=== PATIENT | female | born 1935 | race Asian ===

== ENCOUNTER 2017-09-15 16:05 | Emergency (ER) | payer MEDICARE, OTHER ==
--- NOTE | 2017-09-15 16:47 | ER Document Report ---
ED Medical Screen (RME) - General Chief Complaint: Back Pain Stated Complaint: BACK PAIN Time Seen by Provider: 09/15/17 16:45 Mode of Arrival: Wheelchair Information source: Patient, Relative TRAVEL OUTSIDE OF THE [place] IN LAST 30 DAYS: No - HPI Patient complains to provider of: LBP Onset: This afternoon - pt is ESRD with HD q , Th, Sat -- had HD this am and developed L-sided atraumatic LBP this afternoon. - Related Data Allergies/Adverse Reactions: Penicillins Allergy (Unknown, Unverified 01/12/11 12:33) Physical Exam - Vital signs Vitals: Temp Pulse Resp BP Pulse Ox 98.9 F 81 16 178/60 H 92 09/15/17 16:18 09/15/17 16:18 09/15/17 16:18 09/15/17 16:18 09/15/17 16:18 Course - Vital Signs Vital signs: Temp Pulse Resp BP Pulse Ox 98.9 F 81 16 178/60 H 92 09/15/17 16:18 09/15/17 16:18 09/15/17 16:18 09/15/17 16:18 09/15/17 16:18
--- NOTE | 2017-09-15 18:27 | ER Document Report ---
ED Neck/Back Problem - General Chief Complaint: Back Pain Stated Complaint: BACK PAIN Time Seen by Provider: 09/15/17 16:45 Mode of Arrival: Wheelchair Notes: The patient is an 82-year-old female, past medical history ESRD, lumbar radiculopathy, presents with worsening right lower back pain over the past 2 days. She says that the pain is worse when she moves and feels like a spasming. She has had this in the past and usually uses salonpas patches with relief of her pain. She had a full course of dialysis earlier today. She denies saddle anesthesia, change in bowel or bladder, fevers, difficulty walking , abdominal pain, nausea, vomiting or rash. TRAVEL OUTSIDE OF THE [place] IN LAST 30 DAYS: No - Related Data Allergies/Adverse Reactions: Penicillins Allergy (Unknown, Verified 09/15/17 16:48) Past Medical History - General Information source: Patient, Relative - Social History Smoking Status: Never Smoker Chew tobacco use (# tins/day): No Frequency of alcohol use: None Drug Abuse: None Family History: Reviewed & Not Pertinent Patient has suicidal ideation: No Patient has homicidal ideation: No Renal/ Medical History: Denies: Hx Peritoneal Dialysis Review of Systems - Review of Systems Notes: REVIEW OF SYSTEMS: CONSTITUTIONAL: -fevers, -chills EENT: -eye pain, -difficulty swallowing, -nasal congestion CARDIOVASCULAR: -chest pain, -syncope. RESPIRATORY: -cough, -SOB GASTROINTESTINAL: -abdominal pain, -nausea, -vomiting, -diarrhea GENITOURINARY: -dysuria, -hematuria MUSCULOSKELETAL: +right lower back pain, -neck pain SKIN: -rash or skin lesions. HEMATOLOGIC: -easy bruising or bleeding. LYMPHATIC: -swollen, enlarged glands. NEUROLOGICAL: -altered mental status or loss of consciousness, -headache, - neurologic symptoms PSYCHIATRIC: -anxiety, -depression. ALL OTHER SYSTEMS REVIEWED AND NEGATIVE. Physical Exam - Vital signs Vitals: Temp Pulse Resp BP Pulse Ox 98.9 F 81 16 178/60 H 92 09/15/17 16:18 09/15/17 16:18 09/15/17 16:18 09/15/17 16:18 09/15/17 16:18 - Notes Notes: PHYSICAL EXAMINATION: GENERAL: Well-appearing, well-nourished and in no acute distress. HEAD: Atraumatic, normocephalic. EYES: Pupils equal round and reactive to light, extraocular movements intact, sclera anicteric, conjunctiva are normal. ENT: nares patent, oropharynx clear without exudates. Moist mucous membranes. NECK: Normal range of motion, supple without lymphadenopathy LUNGS: Breath sounds clear to auscultation bilaterally and equal. No wheezes rales or rhonchi. HEART: Regular rate and rhythm without murmurs ABDOMEN: Soft, nontender, normoactive bowel sounds. No guarding, no rebound. No masses appreciated. EXTREMITIES: Normal range of motion, no pitting or edema. No cyanosis. BACK: Right lower back pain and tenderness. No midline tenderness. NEUROLOGICAL: Cranial nerves grossly intact. Normal speech, normal gait. Normal sensory and motor exams. PSYCH: Normal mood, normal affect. SKIN: Warm, Dry, normal turgor, no rashes or lesions noted. Course - Re-evaluation Re-evalutation: Patient appears well. She has tenderness over her right lower paraspinal muscles and they feel like a spasm. After Lidoderm patch, Tylenol and Flexeril , she feels much better. No red flag signs for low back pain at this time. Ultrasound performed to assess for possible kidney stones or AAA. No stones seen, but aorta unable to be visualized. She has had this back pain multiple times in the past and AAA is unlikely at this time. Urinalysis does not show any evidence of pyelonephritis. Instructed her to follow with her primary care physician for further evaluation and treatment. - Vital Signs Vital signs: Temp Pulse Resp BP Pulse Ox 98.9 F 81 16 178/60 H 92 09/15/17 16:18 09/15/17 16:18 09/15/17 16:18 09/15/17 16:18 09/15/17 16:18 - Laboratory Result Diagrams: 09/15/17 17:40 09/15/17 17:40 Laboratory results interpreted by me: 09/15/17 09/15/17 09/15/17 17:40 17:40 20:35 WBC 10.7 H RBC 3.58 L Hgb 11.8 L Hct 34.1 L RDW 14.4 H Potassium 5.2 H Creatinine 3.92 H Est GFR ( Amer) 13 L Est GFR (Non-Af Amer) 11 L Urine Protein >=500 H Urine Ascorbic Acid 20 H - Diagnostic Test Radiology reviewed: Image reviewed, Reports reviewed Radiology results interpreted by me: Renal US: NAD Discharge - Discharge Clinical Impression: Back pain Qualifiers: Back pain location: low back pain Chronicity: chronic Back pain laterality: right Sciatica presence: without sciatica Qualified Code(s): M54.5 - Low back pain Condition: Stable Disposition: HOME, SELF-CARE Additional Instructions: LOW BACK PAIN: Three out of every four people will have an episode of disabling back pain during their lifetime. Most commonly the pain is due to straining of the muscles and ligaments in the low back. Usual treatment includes: (1) Rest on a firm surface. Avoid lying on your stomach. (2) Ice pack the painful area. After a few days, gentle heat may be used intermittently to relax the area, or ice packs can be continued. (3) Medication may be needed -- muscle relaxers and antiinflammatory medicines are commonly used. (4) As the back improves, exercises are prescribed to strengthen the back and abdominal muscles. Your doctor will advise you on the proper care for your back at each stage in your recovery. You may be better in a few days -- or healing may take several weeks. If new symptoms of a "herniated disc" (radiation of pain, numbness, or tingling down the back of the leg or weakness in the leg) occur, you should be re-examined. Further testing may be necessary. MUSCLE RELAXERS: Muscle relaxing medications are usually prescribed for acute muscle spasm or injury to the neck and back. They are often combined with antiinflammatory pain medication for increased relief. You may stop the muscle relaxer when the pain and stiffness have improved. Start the medication again if spasms recur. Muscle relaxers may cause drowsiness, especially with the first dose. Do not operate machinery or drive while under the effects of the medication. Most muscle relaxers last up to 24 hours. Do not combine the medication with alcohol. ICE PACKS: Apply ice packs frequently against the painful area. Many different schedules are recommended, such as "20 minutes on, 20 minutes off" or "one hour ice, two hours rest." If you need to work, you may need to go longer between ice treatments. You should plan to have the area ice packed AT LEAST one fourth of the time. The ice should be applied over the wrap, tape, or splint, or over a layer of cloth -- not directly against the skin. Some ice bags have a built-in cloth and can be put directly on the skin. WARM PACKS: After approximately two days, apply gentle heat (such as a heating pad or hot water bottle) for about 20 to 30 minutes about every two hours -- at least four times daily. Warmth and elevation will help you make a more rapid recovery , and will ease the pain considerably. Do not use HOT heat, and never apply heat for longer than 30 minutes. The continuous heat can invisibly damage skin and muscles -- even when no burn is seen on the surface. Damaged muscles can make you MORE sore. FOLLOW-UP CARE: If you have been referred to a physician for follow-up care, call the physician s office for an appointment as you were instructed or within the next two days. If you experience worsening or a significant change in your symptoms, notify the physician immediately or return to the Emergency Department at any time for re-evaluation. Prescriptions: Cyclobenzaprine HCl [Flexeril 10 mg Tablet] 10 mg PO TIDP PRN #15 tab PRN Reason: Lidocaine [Lidoderm 5% (700 mg) Transdermal Patch] 1 patch TP DAILY #10 adh..patch Forms: Elevated Blood Pressure Referrals: ESTEE BLANCA MD [Primary Care Provider] - Follow up as needed
[2017-09-15 18:30] LABS: ABSOLUTE BASOPHILS # (AUTO) 0.1 10^3/uL (0.0-0.2); ABSOLUTE EOSINOPHILS # (AUTO) 0.5 10^3/uL (0.0-0.6); ABSOLUTE LYMPHOCYTES (AUTO) 2.4 10^3/uL (0.5-4.7); ABSOLUTE MONOCYTES (AUTO) 0.8 10^3/uL (0.1-1.4); ABSOLUTE NEUT (AUTO) 6.9 10^3/uL (1.7-8.2); BASOPHILS % (AUTO) 0.6 % (0-2); EOSINOPHILS % (AUTO) 4.9 % (0-6); HEMATOCRIT 34.1 % (36.0-47.0); HEMOGLOBIN 11.8 g/dL (12.0-15.5); LYMPHOCYTES % (AUTO) 22.1 % (13-45); MEAN CORPUSCULAR HEMOGLOBIN 32.9 pg (27.0-33.4); MEAN CORPUSCULAR HGB CONC 34.6 g/dL (32.0-36.0); MEAN CORPUSCULAR VOLUME 95 fl (80-97); MONOCYTES % (AUTO) 7.6 % (3-13); PLATELET COUNT 179 10^3/uL (150-450); RED BLOOD COUNT 3.58 10^6/uL (3.72-5.28); RED CELL DISTRIBUTION WIDTH 14.4 % (11.5-14.0); SEGMENTED NEUTROPHILS % (AUTO) 64.8 % (42-78); TOTAL CELLS COUNTED % (AUTO) 100 %; WHITE BLOOD COUNT 10.7 10^3/uL (4.0-10.5)
--- NOTE | 2017-09-15 18:34 | RADIOLOGY REPORT (SQ) ---
EXAM DESCRIPTION: L SPINE WHOLE COMPLETED DATE/TIME: 09/15/2017 6:14 pm REASON FOR STUDY: LBP COMPARISON: 08/29/2011 NUMBER OF VIEWS: Five views including obliques. TECHNIQUE: AP, lateral, oblique, and sacral radiographic images acquired of the lumbar spine. LIMITATIONS: None. FINDINGS: MINERALIZATION: Osteopenia. ALIGNMENT: Stable. VERTEBRAE: Stable height. DISCS: Multilevel disc space narrowing with osteophytes. POSTERIOR ELEMENTS: Pedicles and facets are intact. No pars defect or posterior arch defects. Facet arthropathy is present. HARDWARE: None in the spine. PARASPINAL SOFT TISSUES: Normal. PELVIS: Intact as visualized. No fractures or worrisome bone lesions. SI joints intact. OTHER: No other significant finding. IMPRESSION: No acute findings identified. TECHNICAL DOCUMENTATION: JOB ID: [id number] [place]-72 2010 [employer]- All Rights Reserved Reading location - IP/workstation name: [email or web address]
[2017-09-15 18:49] LABS: ALANINE AMINOTRANSFERASE 31 U/L (9-52); ALBUMIN 4.6 g/dL (3.5-5.0); ALKALINE PHOSPHATASE 99 U/L (38-126); ANION GAP 16 (5-19); ASPARTATE AMINO TRANSFERASE 27 U/L (14-36); BILIRUBIN,DIRECT 0.3 mg/dL (0.0-0.4); BILIRUBIN,TOTAL 0.6 mg/dL (0.2-1.3); BLOOD UREA NITROGEN 18 mg/dL (7-20); CALCIUM 9.5 mg/dL (8.4-10.2); CARBON DIOXIDE 26 mmol/L (22-30); CHLORIDE 98 mmol/L (98-107); GLUCOSE 93 mg/dL (75-110); POTASSIUM 5.2 mmol/L (3.6-5.0); SODIUM 140.1 mmol/L (137-145); TOTAL PROTEIN 7.5 g/dL (6.3-8.2)
--- NOTE | 2017-09-15 20:39 | RADIOLOGY REPORT (SQ) ---
EXAM DESCRIPTION: U/S RETROPERITON (RENAL/AORTA) COMPLETED DATE/TIME: 09/15/2017 8:12 pm REASON FOR STUDY: hypertension, atraumatic left back pain COMPARISON: None. TECHNIQUE: Dynamic and static grayscale images acquired of the kidneys and bladder and recorded on P ACS. Additional selected color Doppler and spectral images recorded. LIMITATIONS: None. FINDINGS: RIGHT KIDNEY: 7.7 cm length. Mild increased echogenicity. No solid or suspicious masses i dentified. No hydronephrosis. No calcifications. LEFT KIDNEY: 8.4 cm length. Mild increased echogenicity. No solid or suspicious masses identified. No hydronephrosis. No calcifications. BLADDER: Not imaged OTHER FINDINGS: No other significant finding. IMPRESSION: No evidence for renal urinary obstruction. TECHNICAL DOCUMENTATION: JOB ID: [id number] [place]-[address] [employer] [address]- All Rights Reserved Reading location - IP/workstation name: [email or web address]
[2017-09-15] MEDS ORDERED: LIDOCAINE 5% (700 MG) TRANSDERMAL ADH..PATCH TP ONE (20:54)
[2017-09-15] MEDS ORDERED: ACETAMINOPHEN 325 MG TABLET PO ONE (20:54)
[2017-09-15] MEDS ORDERED: CYCLOBENZAPRINE HCL 10 MG TABLET PO ONE (20:54)
[2017-09-15 21:07] LABS: BILIRUBIN,URINE NEGATIVE (NEGATIVE); COLOR,URINE YELLOW; GLUCOSE, URINE NEGATIVE (NEGATIVE); KETONES,URINE NEGATIVE (NEGATIVE); LEUKOCYTE ESTERASE,URINE NEGATIVE (NEGATIVE); NITRITE,URINE NEGATIVE (NEGATIVE); PROTEIN,URINE >=500 mg/dL (NEGATIVE); URINE SPECIFIC GRAVITY 1.012; UROBILINOGEN,URINE NEGATIVE mg/dL (<2.0)
[2017-09-15 21:09] LABS: APPEARANCE,URINE CLEAR
[2017-09-15 22:02] VITALS: BP 200/54
== END 2017-09-15 21:55 | disposition home or self-care (01) ==
LOC: ER 16:05
DX: M54.5 Low back pain (principal); G89.29 Other chronic pain; N18.6 End stage renal disease; Z99.2 Dependence on renal dialysis; Z88.0 Allergy status to penicillin
CPT/HCPCS: 99284; 36415; 85025; 80053; 81001; 72110; 76770; A9270 ×2

== ENCOUNTER 2017-09-20 18:22 | Emergency (ER) | payer MEDICARE, OTHER ==
[2017-09-20] MEDS ORDERED: HYDROCODONE/ACETAMINOPHEN 5-325 MG TABLET PO ONE (18:53)
--- NOTE | 2017-09-20 18:54 | ER Document Report ---
ED Medical Screen (RME) - General Chief Complaint: Numbness Stated Complaint: BACK PAIN Time Seen by Provider: 09/20/17 18:42 Mode of Arrival: Wheelchair Information source: Patient, Relative Notes: 82-year-old dialysis patient with history of 3 previous back surgeries presents with complaints of back pain which is worsened for the past week. Patient notes numbness in the leg. Denies any loss of bowel or bladder function denies any other cauda equina concerns I have greeted and performed a rapid initial assessment of this patient. A comprehensive ED assessment and evaluation of the patient, analysis of test results and completion of the medical decision making process will be conducted by additional ED providers. PHYSICAL EXAMINATION: GENERAL: Well-appearing, well-nourished and in no acute distress. HEAD: Atraumatic, normocephalic. EYES: Pupils equal round extraocular movements intact, conjunctiva are normal. ENT: Nares patent NECK: Normal range of motion LUNGS: No respiratory distress Musculoskeletal: Normal range of motion, chronic lumbar deformity, surgical incisions NEUROLOGICAL: Normal speech, normal gait. PSYCH: Normal mood, normal affect. SKIN: Warm, Dry, normal turgor, no rashes or lesions noted. TRAVEL OUTSIDE OF THE [place] IN LAST 30 DAYS: No - Related Data Allergies/Adverse Reactions: Penicillins Allergy (Unknown, Verified 09/20/17 18:37) Past Medical History - Social History Frequency of alcohol use: None Drug Abuse: None - Past Medical History Cardiac Medical History: Reports: Hx Hypertension Endocrine Medical History: Reports: Hx Diabetes Mellitus Type 1 Renal/ Medical History: Comment Only: Hx Peritoneal Dialysis - T//SUN Past Surgical History: Reports: Hx Orthopedic Surgery - back x3, right knee Physical Exam - Vital signs Vitals: Temp Pulse Resp BP Pulse Ox 97.9 F 89 16 160/65 H 94 09/20/17 18:27 09/20/17 18:27 09/20/17 18:27 09/20/17 18:27 09/20/17 18:27 Course - Vital Signs Vital signs: Temp Pulse Resp BP Pulse Ox 97.9 F 89 16 160/65 H 94 09/20/17 18:27 09/20/17 18:27 09/20/17 18:27 09/20/17 18:27 09/20/17 18:27
--- NOTE | 2017-09-20 19:46 | ER Document Report ---
ED General - General Chief Complaint: Numbness Stated Complaint: BACK PAIN Time Seen by Provider: 09/20/17 18:42 Mode of Arrival: Wheelchair TRAVEL OUTSIDE OF THE [place] IN LAST 30 DAYS: No - HPI Notes: Patient is an 82-year-old female with history of end-stage renal disease (on dialysis every , , sun), hypertension, diabetes, chronic back pain who presents to the ED complaining of continued back pain over the last week. Patient states that she was evaluated this past Sunday and was diagnosed with a muscle spasm. Patient states that her pain has remained constant since then, and has not been worsening since then. Patient states that she is still eating and drinking without any difficulties. Patient has chronic issues constipation , but bowel movements have otherwise been normal. Patient states that she has had 3 previous surgeries to her lower back. Patient states that her pain is to the left lower side and not midline. Patient states that on occasion she will feel some numbness/tingling radiate down into her legs bilaterally. She denies any IV drug use or recent surgery/injection to her lower back. She denies any recent illness. Denies any history of spinal abscess. Denies any headache, fever, neck pain, URI, sore throat, chest pain, palpitations, syncope, cough, shortness of breath, wheeze, dyspnea, abdominal pain, nausea/vomiting/diarrhea, loss of control of bowel or bladder, saddle anesthesia, muscle paralysis/ weakness, or rash. - Related Data Allergies/Adverse Reactions: Penicillins Allergy (Unknown, Verified 09/20/17 18:37) Past Medical History - General Information source: Patient, Relative - Social History Smoking Status: Never Smoker Frequency of alcohol use: None Drug Abuse: None Family History: Reviewed & Not Pertinent Patient has suicidal ideation: No Patient has homicidal ideation: No - Past Medical History Cardiac Medical History: Reports: Hx Hypertension Endocrine Medical History: Reports: Hx Diabetes Mellitus Type 1 Renal/ Medical History: Comment Only: Hx Peritoneal Dialysis - //SUN Past Surgical History: Reports: Hx Orthopedic Surgery - back x3, right knee Review of Systems - Review of Systems -: Yes All other systems reviewed and negative Physical Exam - Vital signs Vitals: Temp Pulse Resp BP Pulse Ox 97.9 F 89 16 160/65 H 94 09/20/17 18:27 09/20/17 18:27 09/20/17 18:27 09/20/17 18:27 09/20/17 18:27 - Notes Notes: PHYSICAL EXAMINATION: GENERAL: Well-appearing, well-nourished and in no acute distress. A&Ox4. Answers questions appropriately. LUNGS: Breath sounds clear to auscultation bilaterally and equal. No wheezes rales or rhonchi. HEART: Regular rate and rhythm without murmurs, rubs, gallops. ABDOMEN: Soft, nontender, nondistended abdomen. No guarding, no rebound. No masses appreciated. Normal bowel sounds present. No CVA tenderness bilaterally. No pulsatile mass Musculoskeletal: LE's b/l: FROM to passive/active. Strength 5+/5. No deficits noted. No bony tenderness of extremities. Back: FROM to passive/active. Strength 5+/5. No vertebral point tenderness, stepoffs. + deformity to the prev surgical site low back (chronic per spouse). No other bony tenderness, erythema, swelling, or ecchymosis. SLR negative b/l. + mild tenderness to the left L-paraspinal mm. Mild spasming. No SI jt tenderness. No foot drop Extremities: No cyanosis, clubbing, or edema b/l. Peripheral pulses 2+. Capillary refill less than 2 seconds. NEUROLOGICAL: Normal speech, ataxic gait. Normal sensory, motor exams. Reflexes 2+ b/l. PSYCH: Normal mood, normal affect. SKIN: Warm, Dry, normal turgor, no rashes or lesions noted. Course - Re-evaluation Re-evalutation: 09/20/17 22:16 Patient is an afebrile, well-hydrated, 82-year-old female who presents the ED with new onset L1 compression vertebral body fracture. Vitals are stable. PE is otherwise unremarkable for any focal neurological deficits. CBC, CMP were unremarkable for any acute pathology. See MRI results. Low suspicion for any meningitis, expanding/ruptured AAA, cauda equina syndrome, epidural mass lesion/ abscess, herniated disc causing severe spinal stenosis, or other systemic infection at this time. Patient is aware that her condition can change from initial presentation and that she needs monitor symptoms closely for any acute changes. I will send the patient home with a [employer] dispense pack. Recommend conservative measures for symptoms. Call orthopedics tomorrow to schedule an appointment for further evaluation and management. Recheck with your PCM in 1 week. Return to the ED with any worsening/concerning symptoms otherwise as reviewed discharge. Patient is in agreement. - Vital Signs Vital signs: Temp Pulse Resp BP Pulse Ox 97.9 F 89 16 160/65 H 94 09/20/17 18:27 09/20/17 18:27 09/20/17 18:27 09/20/17 18:27 09/20/17 18:27 - Laboratory Result Diagrams: 09/20/17 19:47 09/20/17 19:20 Laboratory results interpreted by me: 09/20/17 09/20/17 19:20 19:47 RBC 3.46 L Hgb 11.2 L Hct 32.8 L RDW 14.3 H Eosinophils % 6.3 H Potassium 5.2 H BUN 22 H Creatinine 4.20 H Est GFR ( Amer) 12 L Est GFR (Non-Af Amer) 10 L Glucose 138 H Discharge - Discharge Clinical Impression: Vertebral compression fracture Qualifiers: Encounter type: initial encounter Qualified Code(s): M48.50XA - Collapsed vertebra, not elsewhere classified, site unspecified, initial encounter for fracture Condition: Stable Disposition: HOME, SELF-CARE Instructions: Compression Fracture of the Spine ([facility]) Additional Instructions: Rest, Ice Tylenol/ibuprofen as needed Light stretches daily Strength exercises as able Moist heat and massage may help F/u with your PCP in 1 week for a recheck Call tomorrow and schedule an appointment with orthopedics for further evaluation and management. Return to the ED with any worsening symptoms and/or development of fever, headache, chest pain, palpitations, syncope, shortness of breath, trouble breathing, abdominal pain, n/v/d, blood in stool/urine, loss of control of bowel /bladder, urinary retention, muscle weakness/paralysis, saddle anesthesia, numbness/tingling, or other worsening symptoms that are concerning to you. Forms: Elevated Blood Pressure Referrals: ESTEE BLANCA MD [Primary Care Provider] - Follow up in 1 week [facility] [Provider Group] - Follow up in 3-5 days
[2017-09-20 20:02] LABS: ALANINE AMINOTRANSFERASE 23 U/L (9-52); ALBUMIN 4.3 g/dL (3.5-5.0); ALKALINE PHOSPHATASE 110 U/L (38-126); ANION GAP 14 (5-19); ASPARTATE AMINO TRANSFERASE 31 U/L (14-36); BILIRUBIN,DIRECT 0.4 mg/dL (0.0-0.4); BILIRUBIN,TOTAL 0.4 mg/dL (0.2-1.3); BLOOD UREA NITROGEN 22 mg/dL (7-20); CALCIUM 8.9 mg/dL (8.4-10.2); CARBON DIOXIDE 26 mmol/L (22-30); CHLORIDE 98 mmol/L (98-107); GLUCOSE 138 mg/dL (75-110); POTASSIUM 5.2 mmol/L (3.6-5.0); SODIUM 138.3 mmol/L (137-145); TOTAL PROTEIN 7.5 g/dL (6.3-8.2)
[2017-09-20 20:11] LABS: ABSOLUTE BASOPHILS # (AUTO) 0.1 10^3/uL (0.0-0.2); ABSOLUTE EOSINOPHILS # (AUTO) 0.5 10^3/uL (0.0-0.6); ABSOLUTE LYMPHOCYTES (AUTO) 2.4 10^3/uL (0.5-4.7); ABSOLUTE MONOCYTES (AUTO) 0.8 10^3/uL (0.1-1.4); ABSOLUTE NEUT (AUTO) 4.7 10^3/uL (1.7-8.2); BASOPHILS % (AUTO) 1.2 % (0-2); EOSINOPHILS % (AUTO) 6.3 % (0-6); HEMATOCRIT 32.8 % (36.0-47.0); HEMOGLOBIN 11.2 g/dL (12.0-15.5); MEAN CORPUSCULAR HEMOGLOBIN 32.3 pg (27.0-33.4); MEAN CORPUSCULAR HGB CONC 34.1 g/dL (32.0-36.0); MEAN CORPUSCULAR VOLUME 95 fl (80-97); MONOCYTES % (AUTO) 8.9 % (3-13); PLATELET COUNT 207 10^3/uL (150-450); RED BLOOD COUNT 3.46 10^6/uL (3.72-5.28); RED CELL DISTRIBUTION WIDTH 14.3 % (11.5-14.0); SEGMENTED NEUTROPHILS % (AUTO) 55.6 % (42-78); TOTAL CELLS COUNTED % (AUTO) 100 %; WHITE BLOOD COUNT 8.5 10^3/uL (4.0-10.5)
--- NOTE | 2017-09-20 22:03 | RADIOLOGY REPORT (SQ) ---
EXAM DESCRIPTION: MRI LUMBAR SPINE WITHOUT COMPLETED DATE/TIME: 09/20/2017 9:17 pm REASON FOR STUDY: 3 previous lumbar surgeries, back pain COMPARISON: CT August 2011 TECHNIQUE: Sagittal and Axial imaging includes T1, T2, STIR and gradient echo sequences. Coronal T2/ HASTE imaging. LIMITATIONS: None. FINDINGS: There is a new 25% compression of the L1 vertebral body with approximately 30% anterior co lumn height loss. No retropulsed fragments into the spinal canal. Otherwise similar degenerative sp ondylolisthesis and disc disease. No epidural fluid collection. OTHER: No other significant findings. IMPRESSION: New compression fracture of the L1 vertebral body with approximately 30% anterior column height loss. No retropulsed fragments into the spinal canal. Otherwise similar degenerative spondy lolisthesis and disc disease. No epidural fluid collection. TECHNICAL DOCUMENTATION: JOB ID: [id number] [place]-72 2010 [employer] All Rights Reserved Reading location - IP/workstation name: [email or web address]
[2017-09-20] MEDS ORDERED: HYDROCODONE/ACETAMINOPHEN 5-325 MG (6 TAB/ER DISP) PO PRN (22:19)
[2017-09-20 22:49] VITALS: BP 145/46
== END 2017-09-20 22:49 | disposition home or self-care (01) ==
LOC: ER 18:22
DX: M48.56XA Collapsed vertebra, not elsewhere classified, lumbar region, initial encounter for fracture (principal); E10.22 Type 1 diabetes mellitus with diabetic chronic kidney disease; I12.0 Hypertensive chronic kidney disease with stage 5 chronic kidney disease or end stage renal disease; N18.6 End stage renal disease; Z99.2 Dependence on renal dialysis; R20.0 Anesthesia of skin; R20.2 Paresthesia of skin; Z98.890 Other specified postprocedural states; Z88.0 Allergy status to penicillin
CPT/HCPCS: 99284; 36415; 85025; 80053; 72148; A9270 ×2

== ENCOUNTER 2018-10-01 03:57 | Emergency (ER) | payer MEDICARE, OTHER ==
[2018-10-01] MEDS ORDERED: PROPOFOL 1,000 MG/100 ML INFUS..BTL IV PRN (04:00)
[2018-10-01] MEDS ORDERED: MIDAZOLAM 2 MG/2 ML INJ ONE ×2 (04:01→05:04)
[2018-10-01] MEDS ORDERED: MIDAZOLAM 2 MG/2 ML INJ IV ONE ×2 (04:02→05:34)
[2018-10-01] MEDS ORDERED: CALCIUM GLUCONATE 1000 MG/10 ML INJ IV ONE (04:05)
[2018-10-01] MEDS ORDERED: IPRATROPIUM/ALBUTEROL 0.5-2.5 MG/3 ML AMPUL NEB ONE (04:21)
--- NOTE | 2018-10-01 04:46 | RADIOLOGY REPORT (SQ) ---
EXAM DESCRIPTION: XR CHEST 1 VIEW COMPLETED DATE/TME: 10/01/2018 04:05 CLINICAL HISTORY: 83 years Female, respiratory failure COMPARISON: None. NUMBER OF VIEWS/TECHNIQUE: 1/AP FINDINGS: Tip of an enteric tracheal tube at the right main bronchus; recommend 6 cm retraction of the endotracheal tube. Moderate mixed interstitial and airspace opacities with central and right upper predominance, mildly enlarged cardiac silhouette, and intact bony thorax. Atherosclerotic vascular disease. Likely adequate appearing enteric tube partially obscured. IMPRESSION: 1. Tip of an enteric tracheal tube at the right main bronchus; recommend 6 cm retraction of the endotracheal tube. 2. Moderate mixed interstitial and airpace opacities. Differential diagnosis includes CHF/pulmonary edema, multifocal pneumonia, and chronic interstitial lung disease.
[2018-10-01] MEDS ORDERED: MIDAZOLAM HCL 50 MG/100 ML RTUINJ IV PRN (04:50)
[2018-10-01] MEDS ORDERED: MIDAZOLAM HCL 50 MG/100 ML RTUINJ ONE (04:50)
--- NOTE | 2018-10-01 05:55 | ER Document Report ---
ED General - General Chief Complaint: Respiratory Arrest Stated Complaint: UNRESPONSIVE Time Seen by Provider: 10/01/18 04:04 Primary Care Provider: ESTEE BLANCA MD [Primary Care Provider] - Follow up as needed TRAVEL OUTSIDE OF THE [place] IN LAST 30 DAYS: No - HPI Notes: Patient brought in for evaluation of respiratory failure. History from EMS is as follows: Patient's heard her yell out for help. She seemed extremely short of breath. EMS was called. Upon arrival the patient was extremely hypoxic with an SPO2 in the 30s. Patient was intubated. She had large emesis. Despite intubation she remained hypoxic. In the field she did have a cardiac arrest. She was given 2 epinephrine IV as well as calcium. She did have return of circulation at that time. She is brought in for further evaluation. The patient is an end-stage renal patient. She is due for dialysis this morning. According to family she has been attending dialysis regularly. No recent medication changes. - Related Data Allergies/Adverse Reactions: No Known Allergies Allergy (Verified 10/01/18 04:34) Past Medical History - General Information source: Relative, Emergency Med Personnel - Social History Smoking Status: Unknown if Ever Smoked Family History: Reviewed & Not Pertinent - Past Medical History Cardiac Medical History: Reports: Hx Hypertension Renal/ Medical History: Reports: Hx End Stage Renal Disease GI Medical History: Reports: Hx Gastroesophageal Reflux Disease Review of Systems - Review of Systems -: Yes ROS unobtainable due to patient's medical condition Physical Exam - Vital signs Vitals: Resp Pulse Ox 28 H 73 L 10/01/18 04:00 10/01/18 04:00 - Notes Notes: Patient brought in the room with ET tube in place. Head is normocephalic and appears atraumatic. Pupils are equal and round, 2 mm, largely nonreactive. Heart is regular rate and rhythm. Lungs show markedly diminished breath sounds on the right with expiratory wheezes throughout both lung vuong. Abdomen soft, nontender, no active bowel sounds. Left upper extremity reveals AV fistula with palpable thrill. Extremities without cyanosis or clubbing. A moderate amount of facial and extremity edema is noted, nonpitting. Patient is sedated. Makes no purposeful movements initially, but does occasionally cough. When disturbed moves all 4 extremities. Course - Re-evaluation Re-evalutation: 10/01/18 07:10 Patient presented to the emergency department for evaluation. She was already intubated upon arrival. Unfortunately she remained significantly hypoxic. She had emesis at the mouth. Tube was suctioned. The patient was placed on a ventilator with PEEP applied. This did significantly improve her oxygenation. Patient's ET tube was found to be at the level of the gracy and pointing towards the right mainstem bronchus. The ET tube was withdrawn approximately 5 cm. During the course of the patient stay her blood pressure dropped significantly. She was initially hypertensive and started on propofol for sedation. Her blood pressure dropped to 110. Propofol was discontinued and the patient was started on Versed. Despite this, the patient's blood pressure continued to drop. Decision was made that a pressor would be required. She had only a 20-gauge peripheral access, and it was positional. Decision was made to place a central line. I did discuss this with the patient's family, including the risks and alternatives. Verbal consent was obtained. Please see separate procedure note. The patient tolerated this well. Postprocedural chest x-ray revealed appropriate placement and no signs of pneumothorax. Patient was started on Levophed through the central line. Laboratory investigations have revealed a white blood cell count of 18.9 thousand. Remainder of her labs are still pending. At this point we do not have any dialysis beds in house. The patient will likely need regular dialysis today, chemistry still pending. Patient has been seen at [facility] in the past. Will attempt them for possible transfer. 10/01/18 07:20 10/01/18 07:21 Still awaiting labs. Patient stable on Levophed, oxygenating well with current vent settings. 10/01/18 08:08 I spoke with the patient transfer water softener service supervisor at [facility]. I was informed there were no dialysis beds. I then spoke to transfer center at [facility]. I was informed there were no dialysis beds. I then spoke to Dr. Hanson, MICU physician at [facility]. Patient was presented. She accepted her for transfer, bed assignment is pending. Patient is stable at this time. - Vital Signs Vital signs: Temp Pulse Resp BP Pulse Ox 98.7 F 18 138/62 H 93 10/01/18 09:06 10/01/18 09:06 10/01/18 09:06 10/01/18 09:06 - Laboratory Result Diagrams: 10/01/18 06:23 10/01/18 06:23 Laboratory results interpreted by me: 10/01/18 10/01/18 10/01/18 06:23 06:23 06:23 WBC 18.9 H RBC 2.53 L Hgb 8.2 L Hct 24.3 L RDW 14.6 H Seg Neutrophils % 86.6 H Lymphocytes % 7.1 L Absolute Neutrophils 16.4 H Carbonic Acid ABG pH ABG pCO2 ABG pO2 ABG HCO3 ABG Total CO2 ABG O2 Saturation Sodium 134.2 L Potassium 5.2 H Carbon Dioxide 20 L BUN 40 H Creatinine 7.36 H Est GFR ( Amer) 6 L Est GFR (Non-Af Amer) 5 L Glucose 269 H Lactic Acid AST 68 H NT-Pro-B Natriuret Pep 2440 H Total Protein 5.6 L Albumin 3.4 L 10/01/18 10/01/18 10/01/18 06:23 08:06 09:03 WBC RBC Hgb Hct RDW Seg Neutrophils % Lymphocytes % Absolute Neutrophils Carbonic Acid 0.80 L 0.87 L ABG pH 7.49 H ABG pCO2 26.7 L 28.9 L ABG pO2 48.7 L 54.7 L ABG HCO3 19.7 L 19.5 L ABG Total CO2 20.5 L 20.3 L ABG O2 Saturation 88.1 L 90.2 L Sodium Potassium Carbon Dioxide BUN Creatinine Est GFR ( Amer) Est GFR (Non-Af Amer) Glucose Lactic Acid 4.2 H AST NT-Pro-B Natriuret Pep Total Protein Albumin - Diagnostic Test Radiology reviewed: Image reviewed, Reports reviewed - EKG Interpretation by Me Additional EKG results interpreted by me: 10/01/18 07:20 Sinus tachycardia with a rate of 108 bpm. Normal axis, intervals. ST depression and T wave inversion laterally, concerning for ischemia versus LVH w ith strain. No old studies available for comparison. Procedures - Central Line Right Internal jugular Time completed: 06:03 Consent obtained: Yes Central line pre-insertion: Sterile PPE donned, Chloraprep applied, Sterile drapes applied Central line lumen type: Triple Anesthetic type: 1% Lidocaine mL's of anesthesia: 4 Ultrasound guided: Yes Line secured with sutures: Yes Central line post-insertion: Blood return from lumens, Sutured, Sterile dressing applied Number of attempts: 2 Complications: No Critical Care Note - Critical Care Note Total time excluding time spent on procedures (mins): 45 Discharge - Discharge Clinical Impression: Acute respiratory failure with hypoxia, Septic shock Pneumonia Qualifiers: Pneumonia type: aspiration pneumonia Condition: Critical Disposition: [facility] Admitting Provider: Dr. Hanson Unit Admitted: ICU Referrals: ESTEE BLANCA MD [Primary Care Provider] - Follow up as needed
[2018-10-01] MEDS ORDERED: NOREPINEPHRINE BITARTRATE INJ/PF 4 MG/4 ML SDV IV ONE (06:02)
[2018-10-01 06:43] LABS: ABSOLUTE BASOPHILS # (AUTO) 0.1 10^3/uL (0.0-0.2); ABSOLUTE EOSINOPHILS # (AUTO) 0.2 10^3/uL (0.0-0.6); ABSOLUTE LYMPHOCYTES (AUTO) 1.3 10^3/uL (0.5-4.7); ABSOLUTE NEUT (AUTO) 16.4 10^3/uL (1.7-8.2); BASOPHILS % (AUTO) 0.4 % (0-2); EOSINOPHILS % (AUTO) 0.9 % (0-6); HEMATOCRIT 24.3 % (36.0-47.0); HEMOGLOBIN 8.2 g/dL (12.0-15.5); LYMPHOCYTES % (AUTO) 7.1 % (13-45); MEAN CORPUSCULAR HEMOGLOBIN 32.4 pg (27.0-33.4); MEAN CORPUSCULAR HGB CONC 33.7 g/dL (32.0-36.0); MEAN CORPUSCULAR VOLUME 96 fl (80-97); PLATELET COUNT 157 10^3/uL (150-450); RED BLOOD COUNT 2.53 10^6/uL (3.72-5.28); RED CELL DISTRIBUTION WIDTH 14.6 % (11.5-14.0); SEGMENTED NEUTROPHILS % (AUTO) 86.6 % (42-78); TOTAL CELLS COUNTED % (AUTO) 100 %; WHITE BLOOD COUNT 18.9 10^3/uL (4.0-10.5)
[2018-10-01] MEDS ORDERED: DEXTROSE 5%-WATER 250 ML with NOREPINEPHRINE BITARTRATE 4 MG IV PRN ×2 (06:50)
--- NOTE | 2018-10-01 06:59 | RADIOLOGY REPORT (SQ) ---
EXAM DESCRIPTION: XR CHEST 1 VIEW COMPLETED DATE/TME: 10/01/2018 00:00 CLINICAL HISTORY: 83 years Female, LINE PLACEMENT COMPARISON: Same day. NUMBER OF VIEWS/TECHNIQUE: 1/AP FINDINGS: Moderate to severe mixed airspace and interstitial opacities. Interval worsening. Adequate appearing endotracheal tube. Likely adequate appearing enteric tube partially obscured. Adequate appearing right jugular central line. Moderately enlarged cardiac silhouette. No pneumothorax. Stable bony thorax. IMPRESSION: Moderate to severe mixed airspace and interstitial opacities. Interval worsening.
[2018-10-01 07:09] LABS: ALANINE AMINOTRANSFERASE 42 U/L (9-52); ALBUMIN 3.4 g/dL (3.5-5.0); ALKALINE PHOSPHATASE 79 U/L (38-126); ANION GAP 15 (5-19); ASPARTATE AMINO TRANSFERASE 68 U/L (14-36); BILIRUBIN,DIRECT 0.3 mg/dL (0.0-0.4); BILIRUBIN,TOTAL 0.3 mg/dL (0.2-1.3); BLOOD UREA NITROGEN 40 mg/dL (7-20); CALCIUM 10.1 mg/dL (8.4-10.2); CARBON DIOXIDE 20 mmol/L (22-30); CHLORIDE 99 mmol/L (98-107); CREATINE KINASE 92 U/L (30-135); GLUCOSE 269 mg/dL (75-110); POTASSIUM 5.2 mmol/L (3.6-5.0); SODIUM 134.2 mmol/L (137-145); TOTAL PROTEIN 5.6 g/dL (6.3-8.2)
[2018-10-01 07:10] LABS: INTERNATIONAL RATION (INR) 1.01; PROTHROMBIN TIME 13.8 SEC (11.4-15.4)
[2018-10-01 07:11] LABS: PARTIAL THROMBOPLASTIN TIME 34.9 SEC (23.5-35.8); VENOUS BLOOD BASE EXCESS -2.5 mmol/L; VENOUS BLOOD HCO3 22.3 mmol/L (20-32); VENOUS BLOOD PCO2 38.4 mmHg (35-63); VENOUS BLOOD PH 7.38 (7.30-7.42)
[2018-10-01 07:21] LABS: NT PRO BNP 2440 pg/mL (<450)
[2018-10-01 07:23] LABS: CREATINE KINASE MB < 0.22 ng/mL (<4.55); TROPONIN I < 0.012 ng/mL
[2018-10-01] MEDS ORDERED: NORMAL SALINE 1000 ML 1,000 ML IV ONE (07:27)
[2018-10-01 08:15] LABS: ARTERIAL BLOOD BASE EXCESS -2.8 mmol/L; ARTERIAL BLOOD FIO2 45%; ARTERIAL BLOOD HCO3 19.7 mmol/L (20-24); ARTERIAL BLOOD O2 SATURATION 88.1 % (94-98); ARTERIAL BLOOD PCO2 26.7 mmHg (35-45); ARTERIAL BLOOD PH 7.49 (7.35-7.45); ARTERIAL BLOOD PO2 48.7 mmHg (80-100); ARTERIAL BLOOD TOTAL CO2 20.5 mmol/L (21-25)
--- NOTE | 2018-10-01 09:10 | ER Document Report ---
Doctor's Note Notes: 10/01/18 09:10 Transport is here for the patient. At this time her vital signs are stable with pulse ox 93%, pulse 78, blood pressure 138/62. She is on a ventilator. She is on norepinephrine drip.
[2018-10-01 09:14] VITALS: BP 138/62
[2018-10-01 09:18] LABS: ARTERIAL BLOOD BASE EXCESS -3.2 mmol/L; ARTERIAL BLOOD H2CO3 0.87 mmol/L (1.05-1.35); ARTERIAL BLOOD HCO3 19.5 mmol/L (20-24); ARTERIAL BLOOD O2 SATURATION 90.2 % (94-98); ARTERIAL BLOOD PCO2 28.9 mmHg (35-45); ARTERIAL BLOOD PH 7.45 (7.35-7.45); ARTERIAL BLOOD PO2 54.7 mmHg (80-100); ARTERIAL BLOOD TOTAL CO2 20.3 mmol/L (21-25)
[2018-10-01 09:23] LABS: ARTERIAL BLOOD FIO2 60%
--- NOTE | 2018-10-02 13:09 | EKG REPORT ---
SEVERITY:- ABNORMAL ECG - SINUS TACHYCARDIA BORDERLINE RIGHT AXIS DEVIATION CONSIDER LEFT VENTRICULAR HYPERTROPHY REPOL ABNRM SUGGESTS ISCHEMIA, DIFFUSE LEADS : Confirmed by: Johnathan Wagoner MD 02-Oct-2018 13:08:08
== END 2018-10-01 09:40 | disposition short-term general hospital (02) ==
LOC: EDBD 03:57 → ER 03:57 → MERGE 03:57 → ER 09:40
DX: A41.9 Sepsis, unspecified organism (principal); R65.21 Severe sepsis with septic shock; J69.0 Pneumonitis due to inhalation of food and vomit; J96.01 Acute respiratory failure with hypoxia; I12.0 Hypertensive chronic kidney disease with stage 5 chronic kidney disease or end stage renal disease; N18.6 End stage renal disease; Z99.2 Dependence on renal dialysis; R60.9 Edema, unspecified
CPT/HCPCS: 93005; 36600; 94640; 99291; 51702; 96375; 96365; 96366; 36415; 82553; 82803 ×2; 82550; 85025; 85610; 85730; 80053; 84484; 83605; 83880; 71045; 94660; 93010; C1751; J2250 ×2; J0610; J2704; J3490; J7060; J7030; A9270; J7620